=== PATIENT | female | born 1995 | race Two or more races ===

== ENCOUNTER 2021-12-23 18:30 | Emergency (ER) | payer MEDICAID ==
[~2021-12-23] VITALS: Ht 165.1 cm; Wt 97.5 kg
[2021-12-23 19:56] LABS: Basophils # (auto) 0 10 ^3/uL (0-0.2); Basophils % (auto) 0.2 % (0.0-2.0); Eosinophils # (auto) 0.2 10 ^3/uL (0-0.8); Eosinophils % (auto) 1.5 % (0.0-7.0); Hematocrit 40.8 % (36.0-46.0); Hemoglobin 14.4 g/dL (12.2-16.2); Lymphocytes # (auto) 1.5 10 ^3/uL (0.4-5.4); Lymphocytes % (auto) 12.7 % (10.0-50.0); Mean Corpuscular Hemoglobin 32.2 pg (28.0-32.0); Mean Corpuscular Hgb Conc. 35.3 g/dL (32.0-36.0); Mean Corpuscular Volume 91.3 fL (80.0-100.0); Monocytes # (auto) 0.6 10 ^3/uL (0-1.3); Monocytes % (auto) 4.7 % (0.0-12.0); Neutrophils # (auto) 9.7 10 ^3/uL (1.6-8.6); Neutrophils % (auto) 80.9 % (37.0-80.0); Nucleated Red Blood Cells % 0.1 %; Red Blood Cells 4.47 10^6/uL (4.0-5.20)
[2021-12-23 20:00] LABS: Urine Bacteria FEW /hpf (None Seen); Urine Blood Negative /uL (Negative); Urine Mucus FEW (None Seen); Urine WBC 4 /hpf (0 - 5)
[2021-12-23] MEDS ORDERED: PANTOPRAZOLE 40 MG TAB PO ONE (20:00)
[2021-12-23 20:14] LABS: Calcium 8.9 mg/dL (8.5-10.1)
[2021-12-23 20:17] LABS: BUN/Creatinine Ratio 17.6
[2021-12-23] MEDS ORDERED: PANT40TA2 PO (21:05)
[2021-12-23 21:47] VITALS: BP 132/89
== END 2021-12-23 21:54 | disposition home or self-care (01) ==
LOC: ER 18:30
DX: K29.70 Gastritis, unspecified, without bleeding (principal); Z90.49 Acquired absence of other specified parts of digestive tract
CPT/HCPCS: 36415; 80048; 81001; 81025; 85025; 93005

== ENCOUNTER 2024-05-19 22:14 | Emergency (ER) | payer MEDICAID ==
[~2024-05-19] VITALS: Ht 165.1 cm; Wt 112.8 kg
[~2024-05-19 22:14] MED LIST: PANT40TA2 PO
[2024-05-19] MEDS: SODIUM CHLORIDE 0.9% 1,000 ML IV ONE (23:25)
[2024-05-19] MEDS: FAMOTIDINE (10MG/ML) 2ML VL IV ONE (23:26)
[2024-05-19] MEDS: diphenhdrAMINE HCL 50 MG/1 ML VL IV ONE (23:26)
[2024-05-19] MEDS: methylPREDNISolone SOD SUCC 125 MG/2 ML VL IV ONE (23:26)
[2024-05-20 00:34] LABS: Urine Bacteria None Seen /hpf (None Seen)
[2024-05-20 00:52] LABS: Urine Blood Negative /uL (Negative); Urine Clarity Clear (Clear); Urine Color Yellow (Yellow); Urine Mucus FEW (None Seen); Urine Protein, UAD TRACE (Negative); Urine Specific Gravity 1.027 (1.001-1.035); Urine Urobilinogen 2 mg/dL (Negative); Urine WBC 2 /hpf (0 - 5); Urine pH 5.5 (5.0-9.0)
[2024-05-20] MEDS: TRANEXAMIC ACID 1,000 MG in SODIUM CHL 0.9% 100 ML IV ONE (01:45)
[2024-05-20 02:20] LABS: Basophils # (auto) 0 10 ^3/uL (0-0.2); Basophils % (auto) 0.2 % (0.0-2.0); Eosinophils # (auto) 0.1 10 ^3/uL (0-0.8); Eosinophils % (auto) 1.1 % (0.0-7.0); Hematocrit 36.3 % (36.0-46.0); Hemoglobin 12.9 g/dL (12.2-16.2); Lymphocytes # (auto) 1.6 10 ^3/uL (0.4-5.4); Lymphocytes % (auto) 16.1 % (10.0-50.0); Mean Corpuscular Hemoglobin 31.8 pg (28.0-32.0); Mean Corpuscular Hgb Conc. 35.5 g/dL (32.0-36.0); Mean Corpuscular Volume 89.7 fL (80.0-100.0); Monocytes # (auto) 0.2 10 ^3/uL (0-1.3); Monocytes % (auto) 1.9 % (0.0-12.0); Neutrophils # (auto) 8.2 10 ^3/uL (1.6-8.6); Neutrophils % (auto) 80.7 % (37.0-80.0); Platelet Count (auto) 361 10^3/uL (140-450); Red Blood Cells 4.04 10^6/uL (4.0-5.20); Red Cell Distribution Width 13.2 % (11.8-14.3); White Blood Cell 10.2 10^3/uL (4.4-10.8)
[2024-05-20 02:26] VITALS: PULSE 66; RESP 21; TEMP 98; O2SAT 96
[2024-05-20 02:31] LABS: Chloride 110 mmol/L (98-107); Potassium 3.9 mmol/L (3.5-5.1); Sodium 139 mmol/L (136-145)
[2024-05-20 02:32] LABS: Anion Gap 5 (5-15); Calcium 9.8 mg/dL (8.7-10.4); Carbon Dioxide 24 mmol/L (20-31)
[2024-05-20 02:37] LABS: BUN/Creatinine Ratio 9.5 (10.0-20.0); Blood Urea Nitrogen 7 mg/dL (9-23); Glucose 112 mg/dL (74-106)
[2024-05-20] MEDS ORDERED: EPIN0.1I11 IJ (04:33)
[2024-05-20] MEDS ORDERED: PRED20TA2 PO (04:33)
[2024-05-20 05:00] VITALS: BP 102/65; PULSE 75; RESP 13; O2SAT 97
== END 2024-05-20 05:10 | disposition home or self-care (01) ==
LOC: ER 22:14
DX: R22.0 Localized swelling, mass and lump, head (principal); R10.2 Pelvic and perineal pain; T78.40XA Allergy, unspecified, initial encounter; I10 Essential (primary) hypertension; Z90.49 Acquired absence of other specified parts of digestive tract; Z32.02 Encounter for pregnancy test, result negative; X58.XXXA Exposure to other specified factors, initial encounter
CPT/HCPCS: 36415; 80048; 81001; 81025; 84702; 85025; 96361; 96374; 96375; 99285; J1200; J2919; J3490; J7030